=== PATIENT | male | born 1980 | race African-American/Black ===

== ENCOUNTER → 2017-04-28 | Outpatient (CLI) | payer MEDICARE, MEDICAID ==
[~2017-04-28] MED LIST: AMINOPHYLLINE INJ 500 MG/20 ML VIAL ONE; REGADENOSON INJ 0.4 MG/5 ML SYR ONE
--- NOTE | 2017-04-28 10:08 | RADRPT ---
EXAM DATE/TIME: 04/28/2017 08:41 [facility] COMPARISON: No previous studies available for comparison. INDICATIONS : End stage renal failure. MEDICAL HISTORY : Hypertension. Dialysis. SURGICAL HISTORY : AVF shunts. ENCOUNTER: Initial ACUITY: 1 day PAIN SCORE: 0/10 LOCATION: Bilateral flank MEASUREMENTS: RIGHT KIDNEY: 9.2 x 4.4 x 3.1 cm LEFT KIDNEY: 9.1 x 5.3 x 4.0 cm FINDINGS: RIGHT KIDNEY: Small and atrophic with diffusely increased cortical echogenicity. LEFT KIDNEY: Small and atrophic with diffusely increased cortical echogenicity. The small [address] in the pole. There is an apparent heterogeneous echogenic lesion in the midpole measuring 0.9 x 2. 6 x 1.8 cm without significant vascularity. BLADDER: Within normal limits given the degree of distension. CONCLUSION: 1. Heterogeneously echogenic lesion in the left renal midpole measuring 0.9 x 2.6 x 1.8 cm without si gnificant vascularity. Although statistically this reflects a complex cyst, a cystic malignancy canno t be excluded. Consider MRI examination or multiphase CT exam for better characterization of this les ion. 2. Atrophic echogenic kidneys consistent with end-stage renal disease. No evidence for obstructive ur opathy. Steven Harris MD on April 28, 2017 at 9:59 Board Certified Radiologist. This report was verified electronically.
--- NOTE | 2017-04-28 10:57 | RADRPT ---
EXAM DATE/TIME: 04/28/2017 09:34 [facility] COMPARISON: No previous studies available for comparison. INDICATIONS : Renal transplant. DOSE: 25.9 mCi Tc99m Myoview at stress. 8.7 mCi Tc99m Myoview at rest. 0.4 mg Lexiscan STRESS SYMPTOMS: Shortness of breath. MEDICATIONS: 1.) 100 mg Aminophylline IV EJECTION FRACTION: 45% MEDICAL HISTORY : Renal disease, end stage. SURGICAL HISTORY : None. ENCOUNTER: Initial ACUITY: 1 day PAIN SCALE: 0/10 LOCATION: chest TECHNIQUE: The patient underwent pharmacologic stress with infusion of prescribed dose. Continuous ECG tracing was monitored during stress. Gated SPECT imaging was performed after stress and conventional SPECT i maging was performed at rest. The examination was performed on a SPECT/CT scanner, both attenuation and non-corrected datasets were reviewed. FINDINGS: DISTRIBUTION: The maximum perfused segment at stress is in the anterior and septal saul. Perfusion is better at s tress than rest. PERFUSION STUDY: The pattern of perfusion at stress is within normal limits. GATED STUDY: Depressed ejection fraction is 45% with mild global hypokinesis. CONCLUSION: Negative for stress-induced ischemia. Mildly depressed ejection fraction 45%.. RISK CATEGORY: Low (<1% Annual Mortality Rate) Ernesto Purcell MD FACR on April 28, 2017 at 10:53 Board Certified Radiologist. This report was verified electronically.
--- NOTE | 2017-04-28 17:23 | ECHRPT ---
Indication: Renal Failure CONCLUSIONS The left ventricular systolic function is normal with an estimated ejection fraction in the range of 55-60%. Moderate left ventricular hypertrophy. Mildly dilated left ventricle. Wall thickness is normal. Mild to moderate mitral valve regurgitation. The left atrial size is moderately dilated. Trivial pulmonary valve regurgitation. There is mild tricuspid valve regurgitation. The estimated pulmonary arterial pressure is 30 mmHg. There is a small pericardial effusion present. BP: / HR: 65 Rhythm: Other MEASUREMENTS (Male / Female) Normal Values Technical Quality:Good 2D ECHO LV Diastolic Diameter PLAX 4.8 cm 4.2 - 5.9 / 3.9 - 5.3 cm LV Systolic Diameter PLAX 3.6 cm IVS Diastolic Thickness 1.5 cm 0.6 - 1.0 / 0.6 - 0.9 cm LVPW Diastolic Thickness 1.6 cm 0.6 - 1.0 / 0.6 - 0.9 cm LV Relative Wall Thickness 0.7 LVOT Diameter 1.9 cm M-MODE Aortic Root Diameter MM 3.1 cm LA Systolic Diameter MM 5.5 cm LA Ao Ratio MM 1.8 AV Cusp Separation MM 1.9 cm DOPPLER AV Peak Velocity 156.0 cm/s AV Peak Gradient 9.7 mmHg LVOT Peak Velocity 148.0 cm/s LVOT Peak Gradient 8.8 mmHg AV Area Cont Eq pk 2.7 cm MR Peak Velocity 548.0 cm/s MR Peak Gradient 120.1 mmHg TR Peak Velocity 223.0 cm/s TR Peak Gradient 19.9 mmHg Right Atrial Pressure 10.0 mmHg Pulmonary Artery Systolic Pressu 29.9 mmHg Right Ventricular Systolic Press 29.9 mmHg PV Peak Velocity 144.0 cm/s PV Peak Gradient 8.3 mmHg FINDINGS LEFT VENTRICLE The left ventricular systolic function is normal with an estimated ejection fraction in the range of 55-60%. Mildly dilated left ventricle. Moderate LVH. RIGHT VENTRICLE Normal right ventricular size and systolic function. LEFT ATRIUM The left atrial size is moderately dilated. RIGHT ATRIUM The right atrial size is normal. ATRIAL SEPTUM Normal atrial septal thickness without atrial level shunting by limited color doppler interrogation. AORTA The aortic root and proximal ascending aorta are normal in size on limited imaging. MITRAL VALVE Mild to moderate mitral valve regurgitation. AORTIC VALVE Trileaflet aortic valve. No aortic valve stenosis or regurgitation. TRICUSPID VALVE There is mild tricuspid valve regurgitation. The estimated pulmonary arterial pressure is 29.9 mmHg. PULMONARY VALVE Trivial pulmonary valve regurgitation. VESSELS The inferior vena cava is normal in size. PERICARDIUM There is a small pericardial effusion present. Jason Vidal MD, FACC (Electronically Signed) Final Date:28 April 2017 17:22
== END ==
LOC: HRAD 07:56 → EDSTATUS 08:00
PROVIDERS: ATTEND Transplant Surgery
DX: N18.6 End stage renal disease (principal); I34.0 Nonrheumatic mitral (valve) insufficiency; I07.1 Rheumatic tricuspid insufficiency; I31.3 Pericardial effusion (noninflammatory)
CPT/HCPCS: 76775; 78452; 93017; 93306; A9502; J0280; J2785